=== PATIENT | male | born 1990 | race Caucasian/White ===

== ENCOUNTER 2021-06-27 19:22 | Emergency (ER) | payer OTHER ==
[2021-06-27 20:24] VITALS: BMI 28.1
[2021-06-27] MEDS ORDERED: ACETAMINOPHEN 325 MG TABLET (FP) PO ONE (20:57)
[2021-06-27] MEDS ORDERED: ACETAMINOPHEN 325 MG TABLET (FP) ONE (21:01)
[2021-06-27] MEDS ORDERED: DIPHTH,PERTUSS(ACELL),TET 0.5 ML DISP.SYRIN IM ONE ×2 (21:10→21:15)
[2021-06-27 22:33] LABS: BASO % 0.5 % (0-2.0); EOS % 2.6 % (0-4.5); HEMATOCRIT 41.4 % (35.4-49); LYMPH % 45.6 % (8-40); MCH 28.5 pg (25.7-33.7); MCHC 33.8 g/dl (32.0-35.9); MEAN CELL VOLUME 84.3 fl (80-96); MONO % 10.1 % (3.8-10.2); NEUT % 41.2 % (42.8-82.8); PLATELET COUNT 258 10^3/uL (134-434); RBC 4.91 M/mm3 (4.00-5.60); RDW 13.4 % (11.9-15.9); WHITE BLOOD COUNT 5.8 K/mm3 (4.0-10.0)
[2021-06-27 22:55] LABS: CALCIUM 8.6 mg/dL (8.5-10.1)
[2021-06-27 22:56] LABS: ALBUMIN 3.5 g/dl (3.4-5.0); BLOOD UREA NITROGEN 16.6 mg/dL (7-18)
[2021-06-27 23:01] LABS: BILIRUBIN,TOTAL 0.3 mg/dL (0.2-1)
[2021-06-28 01:06] LABS: URINE APPEARANCE CLEAR; URINE BILIRUBIN NEGATIVE (NEGATIVE); URINE COLOR YELLOW; URINE GLUCOSE (UA) NEGATIVE (NEGATIVE); URINE KETONE NEGATIVE (NEGATIVE); URINE LEUK ESTERASE NEGATIVE (NEGATIVE); URINE NITRITE NEGATIVE (NEGATIVE); URINE PROTEIN NEGATIVE (NEGATIVE)
[2021-06-28 01:27] VITALS: BP 113/60; PULSE 71; TEMP 97.9
== END 2021-06-28 01:28 | disposition home or self-care (01) ==
LOC: JER 19:22
PROC: 3E0234Z Introduction of Serum, Toxoid and Vaccine into Muscle, Percutaneous Approach (ICD-10-PCS; principal; 2021-06-27)
DX: S30.811A Abrasion of abdominal wall, initial encounter (principal); M54.50 Low back pain, unspecified; V29.9XXA Motorcycle rider (driver) (passenger) injured in unspecified traffic accident, initial encounter; Y92.9 Unspecified place or not applicable
CPT/HCPCS: 36415; 73562-TC-LT-FY; 74177-TC; 76604; 76705-TC; 80053; 81003; 85025; 90471; 90715; 93308; 99284-25

== ENCOUNTER 2023-02-09 11:24 | Emergency (ER) | payer OTHER ==
[2023-02-09 11:38] VITALS: BP 117/72; PULSE 86; RESP 18; TEMP 97; BMI 28.1
[2023-02-09] MEDS ORDERED: DIPHTH,PERTUSS(ACELL),TET 0.5 ML DISP.SYRIN IM ONE ×2 (12:58→13:01)
== END 2023-02-09 13:16 | disposition home or self-care (01) ==
LOC: JERFT 11:24 → JER 11:24 → JERFT 13:16
PROC: 0HQGXZZ Repair Left Hand Skin, External Approach (ICD-10-PCS; principal; 2023-02-09)
PROC: 3E0234Z Introduction of Serum, Toxoid and Vaccine into Muscle, Percutaneous Approach (ICD-10-PCS; 2023-02-09)
DX: S61.421A Laceration with foreign body of right hand, initial encounter (principal); W27.4XXA Contact with kitchen utensil, initial encounter; Y93.G1 Activity, food preparation and clean up
CPT/HCPCS: 12001; 90471; 90715; 99284-25

== ENCOUNTER 2024-02-14 15:32 | Emergency (ER) | payer OTHER ==
[2024-02-14 15:38] VITALS: BP 114/68; PULSE 88; RESP 20; TEMP 98.9; BMI 26.1
[2024-02-14 16:49] LABS: BASO % 0.3 % (0-2.0); EOS % 1.1 % (0-4.5); HEMATOCRIT 45.4 % (35.4-49); HEMOGLOBIN 15.6 GM/dL (11.7-16.9); LYMPH % 24.2 % (8-40); MCH 28.9 pg (25.7-33.7); MCHC 34.4 g/dl (32.0-35.9); MEAN CELL VOLUME 84.2 fl (80-96); MEAN PLT VOLUME 7.5 fl (7.5-11.1); NEUT % 67.4 % (42.8-82.8); PLATELET COUNT 303 10^3/uL (134-434); RBC 5.39 M/mm3 (4.00-5.60); RDW 13.4 % (11.9-15.9); WHITE BLOOD COUNT 6.9 K/mm3 (4.0-10.0)
[2024-02-14 16:57] LABS: INR 1.05 (0.83-1.09); PROTHROMBIN TIME (PATIENT) 11.9 SEC (9.7-13.0)
[2024-02-14 16:59] LABS: POTASSIUM 4.4 mmol/L (3.5-5.1)
[2024-02-14 17:00] LABS: ACTIVATED PTT 33.1 SECONDS (25.2-36.5)
[2024-02-14 17:01] LABS: CALCIUM 8.8 mg/dL (8.5-10.1)
[2024-02-14 17:02] LABS: BLOOD UREA NITROGEN 14.5 mg/dL (7-18); MAGNESIUM 2.2 mg/dL (1.8-2.4)
[2024-02-14 17:05] LABS: CREATININE 1.1 mg/dL (0.55-1.3)
[2024-02-14 17:07] LABS: BILIRUBIN,TOTAL 0.6 mg/dL (0.2-1); TOT PROT 7.4 g/dl (6.4-8.2)
[2024-02-14] MEDS ORDERED: KETOROLAC TROMETHAMINE 15 MG/ML VIAL ONE (17:52)
[2024-02-14] MEDS: LACTATED RINGERS SOLUTION 1000 ML INFUS.BAG IV ONE (18:19)
[2024-02-14] MEDS: KETOROLAC TROMETHAMINE 15 MG/ML VIAL IVPUSH ONE (18:19)
== END 2024-02-14 19:36 | disposition home or self-care (01) ==
LOC: JER 15:32
PROC: 3E0333Z Introduction of Anti-inflammatory into Peripheral Vein, Percutaneous Approach (ICD-10-PCS; principal; 2024-02-14)
DX: M54.2 Cervicalgia (principal); M54.50 Low back pain, unspecified; M25.561 Pain in right knee; M25.562 Pain in left knee; M79.661 Pain in right lower leg; M79.662 Pain in left lower leg; V23.49XA Other motorcycle driver injured in collision with car, pick-up truck or van in traffic accident, initial encounter; Y92.410 Unspecified street and highway as the place of occurrence of the external cause
CPT/HCPCS: 36415; 70450-TC; 71045-TC-FY; 72125-TC; 72128-TC; 72131-TC; 72170-TC-FY; 73030-TC-LT-FY; 73562-TC-LT-FY; 73562-TC-RT-FY; 73590-TC-RT-FY; 80053; 82550; 82553; 83605; 83735; 85025; 85610; 85730; 86850; 86900; 86901; 93005; 93010; 99285-25